=== PATIENT | male | born 1970 | race Caucasian/White ===

== ENCOUNTER 2017-01-22 01:27 | Inpatient (IN) | payer BC ==
[~2017-01-22] VITALS: Ht 172.7 cm; Wt 105.3 kg
[2017-01-22] MEDS ORDERED: NS 1,000 ML IV ONE (02:00)
[2017-01-22 02:19] LABS: VENOUS BASE EXCESS -23.1 (-2.0-2.0); VENOUS O2 SATURATION 87.3 % (60.0-80.0); VENOUS PARTIAL PRESSURE CO2 20.3 mmHg (38.0-50.0); VENOUS STANDARD HCO3 8.8 MEQ/L; VENOUS TOTAL CO2 6.2 MEQ/L (24.0-28.0)
[2017-01-22 02:27] LABS: BASO # 0.1 K/mm3 (0.0-0.2); BASO % 0.5 % (0.0-1.0); EOS # 0.1 K/mm3 (0.0-0.50); EOS % 0.4 % (0.0-3.0); LARGE UNSTAINED CELL # 0.1 K/mm3 (0.0-0.4); LARGE UNSTAINED CELL % 0.6 % (0.0-4.0); LYMPH # 2.3 K/mm3 (1.5-4.5); LYMPH % 10.3 % (24.0-44.0); MEAN CORPUSCULAR HEMOGLOBIN 35.6 pg (27.0-33.0); MEAN CORPUSCULAR HGB CONC 32.7 g/dl (32.0-36.5); MONO # 0.8 K/mm3 (0.0-0.8); MONO % 3.4 % (0.0-5.0); NEUTROPHILS # 18.6 K/mm3 (1.8-7.7); NEUTROPHILS % 84.8 % (36.0-66.0); PLATELET COUNT, AUTOMATED 332 k/mm3 (150-450); RED CELL DISTRIBUTION WIDTH 14.2 % (11.5-14.5); WHITE BLOOD COUNT 21.9 K/mm3 (4.0-10.0)
[2017-01-22] MEDS ORDERED: CHLO4TAB2 PO (02:28)
[2017-01-22 02:32] LABS: OSMOLALITY SERUM 326 MOSM/KG (275-295)
[2017-01-22 02:51] LABS: ALBUMIN 3.3 GM/DL (3.2-5.2); ANION GAP 24 MEQ/L (8-16); CARBON DIOXIDE LEVEL 9 MEQ/L (21-32); CHLORIDE LEVEL 93 MEQ/L (98-107); CREATININE FOR GFR 1.63 MG/DL (0.70-1.30); GLOMERULAR FILTRATION RATE 48.3 (>60); SODIUM LEVEL 126 MEQ/L (136-145)
[2017-01-22 03:20] LABS: ALKALINE PHOSPHATASE 131 U/L (45-117); BLOOD UREA NITROGEN 15 MG/DL (7-18); CALCIUM LEVEL 6.7 MG/DL (8.5-10.1); GLUCOSE, FASTING 509 MG/DL (70-105)
[2017-01-22 03:21] LABS: ALBUMIN/GLOBULIN RATIO 0.67 (1.00-1.93); BILIRUBIN,DIRECT < 0.1 MG/DL (0.0-0.2); BILIRUBIN,TOTAL 1.4 MG/DL (0.2-1.0); TOTAL PROTEIN 8.2 GM/DL (6.4-8.2)
[2017-01-22] MEDS ORDERED: INSULIN HUMAN REGULAR 100 UNITS in NS 99 ML IV SCH ×2 (03:29→03:47)
[2017-01-22 03:30] LABS: POTASSIUM SERUM 5.2 MEQ/L (3.5-5.1)
[2017-01-22] MEDS ORDERED: INSULIN IV RATE CHANGE DOCUMENTATION ML/HR XX SCH ×2 (03:30→04:00)
[2017-01-22 03:41] LABS: ALT/SGPT 76 U/L (12-78)
[2017-01-22 03:44] LABS: AST/SGOT 54 U/L (15-37)
[2017-01-22] MEDS: NS 1,000 ML IV SCH ×6 (03:54→21:54)
[2017-01-22] MEDS ORDERED: ONDANSETRON 4 MG TAB (S0181) PO PRN (04:00)
[2017-01-22] MEDS: INSULIN HUMAN REGULAR 100 UNITS in NS 99 ML IV SCH (04:40)
[2017-01-22 05:04] LABS: ANION GAP 21 MEQ/L (8-16); CARBON DIOXIDE LEVEL 9 MEQ/L (21-32); CHLORIDE LEVEL 97 MEQ/L (98-107); CREATININE FOR GFR 1.74 MG/DL (0.70-1.30); GLOMERULAR FILTRATION RATE 44.8 (>60); SODIUM LEVEL 127 MEQ/L (136-145)
[2017-01-22 05:09] LABS: BLOOD UREA NITROGEN 16 MG/DL (7-18); CALCIUM LEVEL 6.6 MG/DL (8.5-10.1); GLUCOSE, FASTING 492 MG/DL (70-105); POTASSIUM SERUM 5.5 MEQ/L (3.5-5.1)
--- NOTE | 2017-01-22 05:15 | HPE ---
DATE OF ADMISSION: 01/22/2017 PRIMARY CARE PROVIDER: None. REASON FOR ADMISSION: Nausea and diaphoresis. HISTORY OF PRESENT ILLNESS The patient is a 46-year-old male with no known past medical history. He does not see any providers, only goes to urgent care clinic when he is sick. 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 His coworkers noted that he was diaphoretic and tachypneic and they recommended that he go down to the emergency room. Upon arrival to the emergency room, the patient's blood sugar was found to be 419. He has no known history of diabetes but he does have family history of diabetes. Upon my exam, the patient was only complaining of thirst and headache and dizziness and slight nausea. In the emergency room, the patient was given one bolus of normal saline and he was started on insulin drip. Blood work confirmed a diagnosis of his diabetic ketoacidosis. The patient had an anion gap of 24 on his labs, beta-hydroxybutyrate of greater than 46, fasting glucose of 509. Hospitalist was called for the admission. REVIEW OF SYSTEMS: 12-point review of systems was obtained, all of which was negative except for those mentioned above. PAST MEDICAL HISTORY: None. PAST SURGICAL HISTORY: None. ALLERGIES TO MEDICATIONS: None. PRESCRIBED MEDICATIONS: None. SOCIAL HISTORY: The patient denies any tobacco use. States he drinks occasionally. According to records, the patient has history of alcohol rehabilitation. He states he lives alone. FAMILY HISTORY: Positive family history of diabetes sisters and his mother. PHYSICAL FINDINGS: VITAL SIGNS: Temperature 98.5, pulse 132, respiratory rate 20, blood pressure is 146/90, pulse oximetry 98% on room air. HEENT: Pupils equal, round, reactive to light and accommodation. NECK: Supple. No jugular venous distention (JVD). LUNGS: Clear to auscultation bilaterally. CARDIAC: Tachycardiac. No obvious murmurs appreciated. ABDOMEN: Soft, nontender. EXTREMITIES: No clubbing, cyanosis or edema. NEUROLOGIC: Cranial nerves II-XII grossly intact. No focal deficits. LABORATORY FINDINGS: WBC 21.90, hemoglobin 16.4, hematocrit 40.1, platelet count 332. Sodium 126, potassium 5.2, BUN 15, creatinine 1.63, fasting glucose 509, hemoglobin A1c 12.1. ASSESSMENT AND PLAN: 1. Diabetic ketoacidosis. Continue insulin drip. Continue intravenous (IV) fluids. The patient received one bolus of normal saline. We will continue normal saline at a rate of 250 mL an hour. We will continue check basic metabolic panel (BMP) every four hours. We will admit the patient to intensive care unit (ICU). 2. Hyperkalemia secondary to diabetic ketoacidosis. 3. Hyponatremia secondary to ketoacidosis. 4. Deep venous thrombosis (DVT) prophylaxis. Lovenox while in bed.
[2017-01-22 05:44] VITALS: BP 142/94
[2017-01-22] MEDS: INSULIN IV RATE CHANGE DOCUMENTATION ML/HR XX SCH ×3 (05:46→09:03)
[2017-01-22 08:00] VITALS: BP 139/93
[2017-01-22] MEDS: ENOXAPARIN 30 MG/0.3 ML SYR (J1650) SC SCH (08:24)
[2017-01-22 09:41] LABS: CREATININE FOR GFR 1.48 MG/DL (0.70-1.30); POTASSIUM SERUM 4.7 MEQ/L (3.5-5.1)
[2017-01-22 10:23] LABS: CALCIUM LEVEL 8.2 MG/DL (8.5-10.1)
[2017-01-22 12:00] VITALS: BP 140/85
[2017-01-22 13:02] LABS: ANION GAP 17 MEQ/L (8-16); CARBON DIOXIDE LEVEL 11 MEQ/L (21-32); CHLORIDE LEVEL 103 MEQ/L (98-107); CREATININE FOR GFR 1.53 MG/DL (0.70-1.30); GLUCOSE, FASTING 368 MG/DL (70-105); SODIUM LEVEL 131 MEQ/L (136-145)
[2017-01-22 13:53] LABS: BLOOD UREA NITROGEN 16 MG/DL (7-18); CALCIUM LEVEL 8.1 MG/DL (8.5-10.1)
[2017-01-22 13:55] LABS: POTASSIUM SERUM 5.2 MEQ/L (3.5-5.1)
--- NOTE | 2017-01-22 14:41 | ECGEPIP ---
Stationary ECG Study [facility] - ED Test Date: 2017-01-22 Pat Name: MICHAELA MORALES Department: Room: [place] [address] Gender: M Tooling Engineering Tech: triny : 1970 Requested By: RASHEL Winter Order Number: [id number] Reading MD: Shashi Cortes Measurements Intervals [place] Rate: 121 P: 54 [place]: 136 QRS: 5 QRSD: 80 T: 33 QT: 306 QTc: 436 Interpretive Statements SINUS TACHYCARDIA POSSIBLE LAE POSSIBLE INFERIOR MYOCARDIAL INFARCTION, OF INDETERMINATE AGE NO PRIORS Electronically Signed On 01-22-2017 14:41:29 EDT by Shashi Cortes
[2017-01-22 16:00] VITALS: BP 135/78
[2017-01-22 17:10] LABS: CARBON DIOXIDE LEVEL 12 MEQ/L (21-32); CHLORIDE LEVEL 105 MEQ/L (98-107); CREATININE FOR GFR 1.48 MG/DL (0.70-1.30); GLUCOSE, FASTING 331 MG/DL (70-105); POTASSIUM SERUM 4.4 MEQ/L (3.5-5.1); SODIUM LEVEL 134 MEQ/L (136-145)
[2017-01-22 17:23] LABS: BLOOD UREA NITROGEN 16 MG/DL (7-18)
[2017-01-22 17:45] LABS: CALCIUM LEVEL 7.3 MG/DL (8.5-10.1)
[2017-01-22 19:47] VITALS: BP 120/74
[2017-01-22 20:44] LABS: ANION GAP 17 MEQ/L (8-16)
[2017-01-22 21:29] LABS: ANION GAP 12 MEQ/L (8-16); BLOOD UREA NITROGEN 17 MG/DL (7-18); CALCIUM LEVEL 8.1 MG/DL (8.5-10.1); CARBON DIOXIDE LEVEL 14 MEQ/L (21-32); CHLORIDE LEVEL 109 MEQ/L (98-107); CREATININE FOR GFR 1.62 MG/DL (0.70-1.30); GLOMERULAR FILTRATION RATE 48.7 (>60); GLUCOSE, FASTING 254 MG/DL (70-105); SODIUM LEVEL 135 MEQ/L (136-145)
[2017-01-22 21:32] LABS: POTASSIUM SERUM 5.4 MEQ/L (3.5-5.1)
[2017-01-23 00:03] VITALS: BP 117/73
[2017-01-23 01:51] LABS: CALCIUM LEVEL 7.3 MG/DL (8.5-10.1); CREATININE FOR GFR 1.46 MG/DL (0.70-1.30); GLOMERULAR FILTRATION RATE 54.9 (>60)
[2017-01-23] MEDS: NS 1,000 ML IV SCH ×3 (01:56→12:21)
[2017-01-23 02:13] LABS: POTASSIUM SERUM 5.2 MEQ/L (3.5-5.1)
[2017-01-23 04:00] VITALS: BP 109/66
[2017-01-23 05:17] LABS: MEAN CORPUSCULAR HEMOGLOBIN 33.1 pg (27.0-33.0); MEAN CORPUSCULAR HGB CONC 34.1 g/dl (32.0-36.5); MEAN CORPUSCULAR VOLUME 97.1 fl (80.0-96.0); RED CELL DISTRIBUTION WIDTH 14.5 % (11.5-14.5); WHITE BLOOD COUNT 10.8 K/mm3 (4.0-10.0)
[2017-01-23] MEDS: INSULIN HUMAN REGULAR 100 UNITS in NS 99 ML IV SCH (05:19)
[2017-01-23 05:48] LABS: ANION GAP 17 MEQ/L (8-16); BLOOD UREA NITROGEN 15 MG/DL (7-18); CALCIUM LEVEL 6.9 MG/DL (8.5-10.1); CARBON DIOXIDE LEVEL 12 MEQ/L (21-32); CHLORIDE LEVEL 107 MEQ/L (98-107); CHOLESTEROL LEVEL 335 MG/DL (<200); GLOMERULAR FILTRATION RATE 53.2 (>60); GLUCOSE, FASTING 250 MG/DL (70-105); MAGNESIUM LEVEL 2.1 MG/DL (1.8-2.4); POTASSIUM SERUM 4.3 MEQ/L (3.5-5.1); SODIUM LEVEL 136 MEQ/L (136-145); TRIGLYCERIDES LEVEL 2157 MG/DL (<150)
[2017-01-23] MEDS ORDERED: CALCIUM GLUCONATE 1,000 MG in D5W MINI-BAG PLUS 100 ML IV ONE (07:30)
[2017-01-23 08:00] VITALS: BP 110/63
[2017-01-23 08:57] LABS: CALCIUM LEVEL 6.9 MG/DL (8.5-10.1); CREATININE FOR GFR 1.54 MG/DL (0.70-1.30); GLUCOSE, FASTING 235 MG/DL (70-105); POTASSIUM SERUM 3.8 MEQ/L (3.5-5.1); SODIUM LEVEL 137 MEQ/L (136-145)
[2017-01-23 09:33] LABS: BLOOD UREA NITROGEN 15 MG/DL (7-18)
[2017-01-23] MEDS: ENOXAPARIN 30 MG/0.3 ML SYR (J1650) SC SCH (09:49)
[2017-01-23 10:46] LABS: CALCIUM LEVEL 7.8 MG/DL (8.5-10.1); CREATININE FOR GFR 1.48 MG/DL (0.70-1.30)
[2017-01-23 10:52] LABS: ANION GAP 15 MEQ/L (8-16); CARBON DIOXIDE LEVEL 14 MEQ/L (21-32); CHLORIDE LEVEL 108 MEQ/L (98-107)
[2017-01-23] MEDS ORDERED: ADVOMIS4 XX (10:52)
[2017-01-23] MEDS ORDERED: ADVO31MI2 XX (10:52)
[2017-01-23] MEDS ORDERED: INSUDET SC (10:52)
[2017-01-23] MEDS ORDERED: ADVOKIT XX (10:52)
--- NOTE | 2017-01-23 11:08 | IPNPDOC ---
Subjective Date Seen The patient was seen on 01/23/17. Subjective Chief Complaint/HPI The patient is a 46-year-old male admitted with a reason for visit of DKA. General: Denies: Chills, Night Sweats Constitutional: Denies: Chills, Fever Eyes: Denies: Pain, Vision change ENT: Denies: Head Aches, Ear Pain Skin: Denies: Rash, Lesions Pulmonary: Denies: Dyspnea, Cough Cardiovascular: Denies: Chest Pain, Palpitations Gastrointestinal: Denies: Nausea, Vomiting Genitourinary: Denies: Dysuria, Frequency Hematologic: Denies: Bruising, Bleeding Excessively Objective Physical Examination General Exam: Positive: Alert, Cooperative, No Acute Distress ENT Exam: Positive: Atraumatic, Mucous membr. moist/pink Neck Exam: Negative: JVD Chest Exam: Positive: Clear to auscultation, Normal air movement Heart Exam: Positive: Rate Normal, Normal S1, Normal S2 Telemetry: Positive: Sinus Abdomen Exam: Positive: Soft, Negative: Tenderness Extremity Exam: Negative: Tenderness, Swelling Psych Exam: Positive: Oriented x 3 Assessment /Plan Plan/VTE VTE Prophylaxis Ordered?: Yes Plan Diabetic ketoacidosis 2/2 Non-Adherence to Insulin Therapy, Pancreatitis Patient diagnosed with Diabetes Mellitus in March 2016 according to lab work and had not seen a PCP, or taken any medications Hemoglobin A1c noted to be 12.1% Continue IV Insulin, IVF Hydration and DKA Protocol BMP every 2 hours, fingersticks every hour Patient's anion gap improving over the last 24 hours We will continue to monitor the patient's progress Pancreatitis Patient noted to have an elevated lipase level of 1741 with complaints of abdominal pain on admission At this time patient states that his abdominal pain has resolved Pancreatitis may be secondary to the patient's hypertriglyceridemia We will order a liver ultrasound to rule out gallstones as another possible etiology Dyslipidemia Lipid panel noted with elevated Total Cholesterol, Triglyceride levels The patient will need to be started on a statin, fenofibrate Deep venous thrombosis (DVT) prophylaxis Lovenox VS, I&O, 24H, Fishbone Vital Signs/I&O Vital Signs Date Time Temp Pulse Resp B/P (MAP) Pulse Ox O2 Delivery O2 Flow Rate FiO2 01/23/17 08:00 97.0 93 97 110/63 (79) 18 Room Air I&O- Last 24 Hours up to 6 AM 01/23/17 05:59 Intake Total 6295 ml Output Total 3725 ml Balance 2570 ml Laboratory Data 24H LABS Laboratory Tests 2 01/22/17 11:18: Bedside Glucose (Misc Panel) 277H 01/22/17 12:06: Bedside Glucose (Misc Panel) 291H 01/22/17 12:24: Anion Gap 17H, Glomerular Filtration Rate 52.0L, Blood Urea Nitrogen 16, Creatinine 1.53H, Sodium Level 131L, Potassium Level 5.2H, Chloride Level 103, Carbon Dioxide Level 11L, Calcium Level 8.1L, Total Creatine Kinase 133, Creatine Kinase MB 1.0, Creatine Kinase MB Relative Index 0.75, Troponin I < 0.02 01/22/17 13:00: Bedside Glucose (Misc Panel) 284H 01/22/17 13:54: Bedside Glucose (Misc Panel) 297H 01/22/17 14:53: Bedside Glucose (Misc Panel) 258H 01/22/17 16:00: Bedside Glucose (Misc Panel) 257H 01/22/17 16:27: Anion Gap 17H, Blood Urea Nitrogen 16, Creatinine 1.48H, Sodium Level 134L, Potassium Level 4.4, Chloride Level 105, Carbon Dioxide Level 12L, Calcium Level 7.3L 01/22/17 17:08: Bedside Glucose (Misc Panel) 243H 01/22/17 18:10: Bedside Glucose (Misc Panel) 249H 01/22/17 18:48: Bedside Glucose (Misc Panel) 233H 01/22/17 19:45: Bedside Glucose (Misc Panel) 256H 01/22/17 20:29: Anion Gap 12, Glomerular Filtration Rate 48.7L, Blood Urea Nitrogen 17, Creatinine 1.62H, Sodium Level 135L, Potassium Level 5.4H, Chloride Level 109H, Carbon Dioxide Level 14L, Calcium Level 8.1L, Total Creatine Kinase 198, Creatine Kinase MB 1.0, Creatine Kinase MB Relative Index 0.50, Troponin I < 0.02 01/22/17 20:45: Bedside Glucose (Misc Panel) 255H 01/22/17 21:49: Bedside Glucose (Misc Panel) 263H 01/22/17 22:46: Bedside Glucose (Misc Panel) 233H 01/22/17 23:50: Bedside Glucose (Misc Panel) 244H 01/23/17 00:55: Bedside Glucose (Misc Panel) 210H 01/23/17 01:25: Anion Gap 11, Glomerular Filtration Rate 54.9L, Blood Urea Nitrogen 14, Creatinine 1.46H, Sodium Level 134L, Potassium Level 5.2H, Chloride Level 108H, Carbon Dioxide Level 15L, Calcium Level 7.3L 01/23/17 01:53: Bedside Glucose (Misc Panel) 226H 01/23/17 02:53: Bedside Glucose (Misc Panel) 236H 01/23/17 03:55: Bedside Glucose (Misc Panel) 223H 01/23/17 04:54: Anion Gap 17H, Glomerular Filtration Rate 53.2L, Calcium Level 6.9L, Magnesium Level 2.1, Triglycerides Level 2157H, LDL Cholesterol , Total Cholesterol 335H, Non-HDL Cholesterol (LDL + VLDL) 309, Total HDL Cholesterol 26L, Cholesterol/ HDL Ratio 12.884H, Lipase 1052H 01/23/17 05:06: Bedside Glucose (Misc Panel) 205H 01/23/17 05:57: Bedside Glucose (Misc Panel) 217H 01/23/17 06:53: Bedside Glucose (Misc Panel) 201H 01/23/17 08:15: Bedside Glucose (Misc Panel) 184H, Anion Gap 15, Blood Urea Nitrogen 15, Creatinine 1.54H, Sodium Level 137, Potassium Level 3.8, Chloride Level 108H, Carbon Dioxide Level 14L, Calcium Level 6.9L 01/23/17 09:41: Bedside Glucose (Misc Panel) 209H 01/23/17 10:05: Anion Gap 17H, Glomerular Filtration Rate 54.0L, Blood Urea Nitrogen 15, Creatinine 1.48H, Sodium Level 138, Potassium Level 4.0, Chloride Level 109H, Carbon Dioxide Level 12L, Calcium Level 7.8L 01/23/17 10:31: Bedside Glucose (Misc Panel) 205H CBC/BMP Laboratory Tests 01/22/17 12:24 Calcium Level 8.1 L, Total Creatine Kinase 133 01/22/17 16:27 Calcium Level 7.3 L 01/22/17 20:29 Calcium Level 8.1 L, Total Creatine Kinase 198 01/23/17 01:25 Calcium Level 7.3 L 01/23/17 04:54 Red Blood Count 4.01 L, Mean Corpuscular Volume 97.1 H, Mean Corpuscular Hemoglobin 33.1 H, Mean Corpuscular Hemoglobin Concent 34.1, Red Cell Distribution Width 14.5 01/23/17 08:15 Calcium Level 6.9 L 01/23/17 10:05 Calcium Level 7.8 L Microbiology Microbiology 01/22/17 Blood Culture - Preliminary, Resulted No growth after 24 hours . All specim... FLORA ÁLVAREZ MD January 23, 2017 11:07
[2017-01-23 12:00] VITALS: BP 112/62
[2017-01-23 13:16] LABS: ANION GAP 18 MEQ/L (8-16); BLOOD UREA NITROGEN 14 MG/DL (7-18); CALCIUM LEVEL 7.8 MG/DL (8.5-10.1); CARBON DIOXIDE LEVEL 11 MEQ/L (21-32); CHLORIDE LEVEL 112 MEQ/L (98-107); CREATININE FOR GFR 1.26 MG/DL (0.70-1.30); GLOMERULAR FILTRATION RATE > 60.0 (>60); GLUCOSE, FASTING 218 MG/DL (70-105); POTASSIUM SERUM 3.9 MEQ/L (3.5-5.1); SODIUM LEVEL 141 MEQ/L (136-145)
[2017-01-23] MEDS ORDERED: NS 0.45% 1,000 ML IV SCH (13:30)
[2017-01-23] MEDS ORDERED: POTASSIUM CHLORIDE 10 MEQ SR TABLET PO ONE ×3 (13:30→23:00)
[2017-01-23] MEDS: D5W/0.45% SODIUM CHLORIDE 1,000 ML IV SCH ×4 (14:05→22:54)
[2017-01-23 14:52] LABS: ANION GAP 16 MEQ/L (8-16); BLOOD UREA NITROGEN 14 MG/DL (7-18); CALCIUM LEVEL 7.8 MG/DL (8.5-10.1); CARBON DIOXIDE LEVEL 14 MEQ/L (21-32); CHLORIDE LEVEL 111 MEQ/L (98-107); GLOMERULAR FILTRATION RATE > 60.0 (>60); GLUCOSE, FASTING 208 MG/DL (70-105); POTASSIUM SERUM 3.4 MEQ/L (3.5-5.1); SODIUM LEVEL 141 MEQ/L (136-145)
[2017-01-23 16:00] VITALS: BP 113/63
[2017-01-23 16:55] LABS: CALCIUM LEVEL 7.8 MG/DL (8.5-10.1); CREATININE FOR GFR 1.4 MG/DL (0.70-1.30); GLOMERULAR FILTRATION RATE 57.6 (>60); POTASSIUM SERUM 3.8 MEQ/L (3.5-5.1)
--- NOTE | 2017-01-23 18:16 | REP ---
HEPATIC ULTRASOUND: 01/23/2017: Clinical history: Pancreatitis. Findings: There are no prior studies. The entire examination is somewhat limited due to abundant overlying bowel gas and body habitus considerations. There is some hepatomegaly with diffuse hyperechogenic liver consistent with fatty infiltration. There is a zone of focal fat sparing adjacent to the gallbladder fossa measuring 2.8 x 1.5 x 1.3 cm. No intrahepatic biliary dilatation nor adjacent ascites. Gallbladder is at least 5.4 cm long and shows no stone, sludge or pericholecystic fluid. Gallbladder wall thickness is 2.5 mm, normal. Common duct 4.4 mm without filling defect. Pancreas is limited evaluation due to the gas shadowing and body habitus. The pancreatic detail evaluation is poor and tail of the body and head seen only in part and grossly intact. The right kidney is 12.1 x 6.5 x 6.1 cm. No hydronephrosis or stones seen. Impression: 1. Some degree of hepatomegaly with diffuse fatty infiltration with a zone of focal fat sparing adjacent to the gallbladder fossa without biliary dilatation, discrete mass, cyst or perihepatic ascites. 2. Common duct 4.4 mm without filling defect in the gallbladder up to 5.4 cm long with normal wall thickness and no stone, sludge or pericholecystic fluid. 3. The pancreas has limited evaluation due to factors described above. The right kidney shows no hydronephrosis or stone. Signed by Migel Carreon MD 01/23/2017 07:51 P
[2017-01-23 18:58] LABS: CALCIUM LEVEL 7.6 MG/DL (8.5-10.1); CREATININE FOR GFR 1.37 MG/DL (0.70-1.30); POTASSIUM SERUM 3.4 MEQ/L (3.5-5.1)
[2017-01-23 20:00] VITALS: BP 116/71
[2017-01-23 20:25] LABS: ANION GAP 15 MEQ/L (8-16); BLOOD UREA NITROGEN 14 MG/DL (7-18); CALCIUM LEVEL 6.9 MG/DL (8.5-10.1); CARBON DIOXIDE LEVEL 15 MEQ/L (21-32); CHLORIDE LEVEL 108 MEQ/L (98-107); CREATININE FOR GFR 1.27 MG/DL (0.70-1.30); GLOMERULAR FILTRATION RATE > 60.0 (>60); GLUCOSE, FASTING 289 MG/DL (70-105); POTASSIUM SERUM 3.5 MEQ/L (3.5-5.1); SODIUM LEVEL 138 MEQ/L (136-145)
[2017-01-23 22:27] LABS: CALCIUM LEVEL 7.1 MG/DL (8.5-10.1); CREATININE FOR GFR 1.38 MG/DL (0.70-1.30); GLOMERULAR FILTRATION RATE 58.5 (>60); POTASSIUM SERUM 3.3 MEQ/L (3.5-5.1)
[2017-01-24] VITALS (7 sets, daily range): BP systolic 115–133; BP diastolic 67–84
[2017-01-24 00:42] LABS: ANION GAP 12 MEQ/L (8-16); BLOOD UREA NITROGEN 11 MG/DL (7-18); CALCIUM LEVEL 7.7 MG/DL (8.5-10.1); CARBON DIOXIDE LEVEL 19 MEQ/L (21-32); CHLORIDE LEVEL 110 MEQ/L (98-107); CREATININE FOR GFR 1.26 MG/DL (0.70-1.30); GLOMERULAR FILTRATION RATE > 60.0 (>60); GLUCOSE, FASTING 265 MG/DL (70-105); POTASSIUM SERUM 3.2 MEQ/L (3.5-5.1); SODIUM LEVEL 141 MEQ/L (136-145)
[2017-01-24 02:11] LABS: CALCIUM LEVEL 7.4 MG/DL (8.5-10.1); CREATININE FOR GFR 1.39 MG/DL (0.70-1.30); GLOMERULAR FILTRATION RATE 58.1 (>60); POTASSIUM SERUM 3.2 MEQ/L (3.5-5.1)
[2017-01-24 04:54] LABS: MEAN CORPUSCULAR HEMOGLOBIN 32.3 pg (27.0-33.0); MEAN CORPUSCULAR HGB CONC 35.1 g/dl (32.0-36.5); RED CELL DISTRIBUTION WIDTH 14.9 % (11.5-14.5); WHITE BLOOD COUNT 7.8 K/mm3 (4.0-10.0)
[2017-01-24 05:00] LABS: ANION GAP 13 MEQ/L (8-16); BLOOD UREA NITROGEN 10 MG/DL (7-18); CALCIUM LEVEL 7.5 MG/DL (8.5-10.1); CARBON DIOXIDE LEVEL 16 MEQ/L (21-32); CHLORIDE LEVEL 109 MEQ/L (98-107); CREATININE FOR GFR 1.22 MG/DL (0.70-1.30); GLOMERULAR FILTRATION RATE > 60.0 (>60); GLUCOSE, FASTING 251 MG/DL (70-105); POTASSIUM SERUM 3.2 MEQ/L (3.5-5.1); SODIUM LEVEL 138 MEQ/L (136-145)
[2017-01-24 05:01] LABS: MEAN CORPUSCULAR VOLUME 92.1 fl (80.0-96.0)
[2017-01-24] MEDS: KCL 10MEQ IN 100ML SWI (KRUN) 10 MEQ in APPROPRIATE DILUENT 1 EA IV SCH ×8 (06:12→10:37)
[2017-01-24] MEDS ORDERED: GLUCOSE 4 GM CHEW TABLET PO PRN (07:30)
[2017-01-24] MEDS: HumaLOG INSULIN (NovoLOG) PER UNIT SC SCH ×3 (07:30→17:27)
[2017-01-24] MEDS ORDERED: GLUCAGON FOR INJ 1 MG VIAL (J1610) SC PRN (07:30)
[2017-01-24] MEDS ORDERED: DEXTROSE 50% 50 ML SYRINGE IV PRN (07:30)
[2017-01-24] MEDS: LEVEMIR (INSULIN DETEMIR) 1 UNITS/0.01ML SC SCH (08:00)
[2017-01-24] MEDS: ENOXAPARIN 30 MG/0.3 ML SYR (J1650) SC SCH (09:32)
--- NOTE | 2017-01-24 13:14 | IPNPDOC ---
Subjective Date Seen The patient was seen on 01/24/17. Subjective Chief Complaint/HPI The patient is a 46-year-old male admitted with a reason for visit of DKA. General: Denies: Chills, Night Sweats Constitutional: Denies: Chills, Fever Eyes: Denies: Pain, Vision change ENT: Denies: Head Aches, Ear Pain Skin: Denies: Rash, Lesions Pulmonary: Denies: Dyspnea, Cough Cardiovascular: Denies: Chest Pain, Palpitations Gastrointestinal: Denies: Nausea, Vomiting Genitourinary: Denies: Dysuria, Frequency Hematologic: Denies: Bruising, Bleeding Excessively Objective Physical Examination General Exam: Positive: Alert, Cooperative, No Acute Distress ENT Exam: Positive: Atraumatic, Mucous membr. moist/pink Neck Exam: Negative: JVD Chest Exam: Positive: Clear to auscultation, Normal air movement Heart Exam: Positive: Rate Normal, Normal S1, Normal S2 Telemetry: Positive: Sinus Abdomen Exam: Positive: Soft, Negative: Tenderness Extremity Exam: Negative: Tenderness, Swelling Psych Exam: Positive: Oriented x 3 Assessment /Plan Plan/VTE VTE Prophylaxis Ordered?: Yes Plan Diabetic ketoacidosis 2/2 Non-Adherence to Insulin Therapy, Pancreatitis Patient diagnosed with Diabetes Mellitus in March 2016 according to lab work and had not seen a PCP, or taken any medications Hemoglobin A1c noted to be 12.1% Patient's anion gap closed over night Transitioned to SC Insulin, PO Diet We will continue to monitor the patient's progress Pancreatitis Patient noted to have an elevated lipase level of 1741 with complaints of abdominal pain on admission At this time patient states that his abdominal pain has resolved and he is tolerating a PO Diet Pancreatitis may be secondary to the patient's hypertriglyceridemia Liver U/S with no acute findings for cholecystitis, gallstone pancreatitis Hypertriglyceridemia Lipid panel noted The patient will be started on fenofibrate I have extensively discussed the need for dietary discretion, exercise, and overall lifestyle modifications that the patient needs to implement in order to better control his medical comorbidities. I have also ordered a dietary consult. Deep venous thrombosis (DVT) prophylaxis Lovenox VS, I&O, 24H, Fishbone Vital Signs/I&O Vital Signs Date Time Temp Pulse Resp B/P (MAP) Pulse Ox O2 Delivery O2 Flow Rate FiO2 01/24/17 12:00 96.6 92 22 121/74 (90) 98 Room Air I&O- Last 24 Hours up to 6 AM 01/24/17 05:59 Intake Total 6505 ml Output Total 3800 ml Balance 2705 ml Laboratory Data 24H LABS Laboratory Tests 2 01/23/17 14:00: Bedside Glucose (Misc Panel) 180H 01/23/17 14:01: Anion Gap 16, Glomerular Filtration Rate > 60.0, Blood Urea Nitrogen 14, Creatinine 1.30, Sodium Level 141, Potassium Level 3.4L, Chloride Level 111H, Carbon Dioxide Level 14L, Calcium Level 7.8L 01/23/17 15:27: Bedside Glucose (Misc Panel) 234H 01/23/17 16:03: Bedside Glucose (Misc Panel) 254H, Anion Gap 16, Glomerular Filtration Rate 57.6L, Blood Urea Nitrogen 15, Creatinine 1.40H, Sodium Level 139, Potassium Level 3.8, Chloride Level 109H, Carbon Dioxide Level 14L, Calcium Level 7.8L 01/23/17 17:05: Bedside Glucose (Misc Panel) 264H 01/23/17 17:57: Bedside Glucose (Misc Panel) 244H 01/23/17 17:58: Anion Gap 15, Glomerular Filtration Rate 59.0L, Blood Urea Nitrogen 14, Creatinine 1.37H, Sodium Level 138, Potassium Level 3.4L, Chloride Level 109H, Carbon Dioxide Level 14L, Calcium Level 7.6L 01/23/17 18:48: Bedside Glucose (Misc Panel) 260H 01/23/17 19:52: Anion Gap 15, Glomerular Filtration Rate > 60.0, Blood Urea Nitrogen 14, Creatinine 1.27, Sodium Level 138, Potassium Level 3.5, Chloride Level 108H, Carbon Dioxide Level 15L, Calcium Level 6.9L 01/23/17 19:55: Bedside Glucose (Misc Panel) 253H 01/23/17 20:50: Bedside Glucose (Misc Panel) 250H 01/23/17 21:52: Bedside Glucose (Misc Panel) 268H 01/23/17 22:02: Anion Gap 13, Glomerular Filtration Rate 58.5L, Blood Urea Nitrogen 12, Creatinine 1.38H, Sodium Level 138, Potassium Level 3.3L, Chloride Level 108H, Carbon Dioxide Level 17L, Calcium Level 7.1L 01/23/17 22:51: Bedside Glucose (Misc Panel) 280H 01/24/17 00:02: Bedside Glucose (Misc Panel) 247H 01/24/17 00:05: Anion Gap 12, Glomerular Filtration Rate > 60.0, Blood Urea Nitrogen 11, Creatinine 1.26, Sodium Level 141, Potassium Level 3.2L, Chloride Level 110H, Carbon Dioxide Level 19L, Calcium Level 7.7L 01/24/17 01:02: Bedside Glucose (Misc Panel) 284H 01/24/17 01:46: Anion Gap 12, Glomerular Filtration Rate 58.1L, Blood Urea Nitrogen 11, Creatinine 1.39H, Sodium Level 138, Potassium Level 3.2L, Chloride Level 107, Carbon Dioxide Level 19L, Calcium Level 7.4L 01/24/17 03:02: Bedside Glucose (Misc Panel) 259H 01/24/17 03:48: Bedside Glucose (Misc Panel) 235H 01/24/17 04:12: Anion Gap 13, Glomerular Filtration Rate > 60.0, Blood Urea Nitrogen 10, Creatinine 1.22, Sodium Level 138, Potassium Level 3.2L, Chloride Level 109H, Carbon Dioxide Level 16L, Calcium Level 7.5L, Magnesium Level 2.0, Lipase 472H 01/24/17 04:51: Bedside Glucose (Misc Panel) 232H 01/24/17 06:02: Bedside Glucose (Misc Panel) 238H 01/24/17 06:48: Bedside Glucose (Misc Panel) 216H 01/24/17 07:59: Bedside Glucose (Misc Panel) 216H 01/24/17 09:26: Bedside Glucose (Misc Panel) 255H 01/24/17 10:03: Bedside Glucose (Misc Panel) 287H 01/24/17 11:18: Bedside Glucose (Misc Panel) 266H CBC/BMP Laboratory Tests 01/23/17 14:01 Calcium Level 7.8 L 01/23/17 16:03 Calcium Level 7.8 L 01/23/17 17:58 Calcium Level 7.6 L 01/23/17 19:52 Calcium Level 6.9 L 01/23/17 22:02 Calcium Level 7.1 L 01/24/17 00:05 Calcium Level 7.7 L 01/24/17 01:46 Calcium Level 7.4 L 01/24/17 04:12 Calcium Level 7.5 L, Red Blood Count 3.82 L, Mean Corpuscular Volume 92.1 #, Mean Corpuscular Hemoglobin 32.3, Mean Corpuscular Hemoglobin Concent 35.1, Red Cell Distribution Width 14.9 H Microbiology Microbiology 01/22/17 Blood Culture - Preliminary, Resulted No Growth after 48 hours. All Specime... FLORA ÁLVAREZ MD January 24, 2017 13:14
[2017-01-24] MEDS: FENOFIBRATE 48 MG TAB (TRICOR) PO SCH (14:57)
[2017-01-24] MEDS ORDERED: POTASSIUM CHLORIDE 10 MEQ SR TABLET PO ONE (15:00)
[2017-01-24] MEDS ORDERED: HumaLOG INSULIN (NovoLOG) PER UNIT SC SCH (21:00)
[2017-01-25 06:00] VITALS: BP 134/86
[2017-01-25 06:02] LABS: MEAN CORPUSCULAR HEMOGLOBIN 32.7 pg (27.0-33.0); MEAN CORPUSCULAR HGB CONC 35.3 g/dl (32.0-36.5); MEAN CORPUSCULAR VOLUME 92.8 fl (80.0-96.0); RED CELL DISTRIBUTION WIDTH 14.4 % (11.5-14.5)
[2017-01-25 06:19] LABS: ANION GAP 13 MEQ/L (8-16); BLOOD UREA NITROGEN 11 MG/DL (7-18); CALCIUM LEVEL 8.1 MG/DL (8.5-10.1); CARBON DIOXIDE LEVEL 21 MEQ/L (21-32); CHLORIDE LEVEL 103 MEQ/L (98-107); CREATININE FOR GFR 1.06 MG/DL (0.70-1.30); GLOMERULAR FILTRATION RATE > 60.0 (>60); GLUCOSE, FASTING 263 MG/DL (70-105); MAGNESIUM LEVEL 1.9 MG/DL (1.8-2.4); POTASSIUM SERUM 3.5 MEQ/L (3.5-5.1); SODIUM LEVEL 137 MEQ/L (136-145)
[2017-01-25] MEDS ORDERED: FENO48TA2 PO (07:21)
[2017-01-25] MEDS ORDERED: INSUDET SC (07:21)
[2017-01-25] MEDS ORDERED: POTASSIUM CHLORIDE 10 MEQ SR TABLET PO ONE (07:30)
[2017-01-25] MEDS: FENOFIBRATE 48 MG TAB (TRICOR) PO SCH (08:37)
[2017-01-25] MEDS: ENOXAPARIN 30 MG/0.3 ML SYR (J1650) SC SCH (08:38)
[2017-01-25] MEDS: LEVEMIR (INSULIN DETEMIR) 1 UNITS/0.01ML SC SCH (08:39)
[2017-01-25] MEDS: HumaLOG INSULIN (NovoLOG) PER UNIT SC SCH (08:39)
--- NOTE | 2017-01-25 15:06 | DS.PDOC ---
Discharge Summary General Date of Admission January 22, 2017 at 03:54 Date of Discharge 01/25/17 Discharge Summary PROCEDURES PERFORMED DURING STAY: None. ADMITTING DIAGNOSES: 1. . Diabetic ketoacidosis 2. . Acute pancreatitis 3. . Hypertriglyceridemia DISCHARGE DIAGNOSES: 1. . Diabetic ketoacidosis 2. . Acute pancreatitis 3. . Hypertriglyceridemia COMPLICATIONS/CHIEF COMPLAINT: DKA. HISTORY OF PRESENT ILLNESS: . 46-year-old male with no known past medical history presented to the ER with a chief complaint of nausea, vomiting, and abdominal pain over the last 1 week. The patient states that he had multiple episodes of nonbloody emesis, and states that he has not been able to keep anything down. He does note that he has checked his blood sugars at home and was noted to have a blood sugar level over 500. Of note, the patient states that he has not seen a physician in multiple years and does not take any medications. In the ER, the patient was noted to be in diabetic ketoacidosis with underlying acute pancreatitis. The patient was admitted to the hospital service for further evaluation and management. During hospitalization, the patient was provided with IV insulin and IV fluids until his anion gap was closed and he was able to tolerate a by mouth diet. The patient was eventually transitioned to subcutaneous insulin 15 units twice a day. During his workup, the patient was noted to have an elevated triglyceride level. He has been started on fenofibrate for treatment of this. This was likely the exacerbating factor for his acute pancreatitis. The patient was given extensive counseling on dietary, exercise, and overall lifestyle modifications in an effort to treat his underlying diabetes and hypertriglyceridemia. We have set the patient up with a primary care doctor and a follow-up appointment after discharge. At this time, the patient states that he is feeling much better and is eager to go home. I advised the patient to keep a logbook of his blood sugar levels to take with him to his primary care physician's office for further titration of his medications. If his blood sugar levels were to remain elevated he has been advised to return to the ER for further evaluation and management. DISCHARGE MEDICATIONS: Please see below. ALLERGIES: Please see below. PHYSICAL EXAMINATION ON DISCHARGE: VITAL SIGNS: Please see below. General Exam: Positive: Alert, Cooperative, No Acute Distress ENT Exam: Positive: Atraumatic, Mucous membr. moist/pink Neck Exam: Negative: JVD Chest Exam: Positive: Clear to auscultation, Normal air movement Heart Exam: Positive: Rate Normal, Normal S1, Normal S2 Telemetry: Positive: Sinus Abdomen Exam: Positive: Soft, Negative: Tenderness Extremity Exam: Negative: Tenderness, Swelling Psych Exam: Positive: Oriented x 3 LABORATORY DATA: Please see below. IMAGING: HEPATIC ULTRASOUND: 01/23/2017: Clinical history: Pancreatitis. Findings: There are no prior studies. The entire examination is somewhat limited due to abundant overlying bowel gas and body habitus considerations. There is some hepatomegaly with diffuse hyperechogenic liver consistent with fatty infiltration. There is a zone of focal fat sparing adjacent to the gallbladder fossa measuring 2.8 x 1.5 x 1.3 cm. No intrahepatic biliary dilatation nor adjacent ascites. Gallbladder is at least 5.4 cm long and shows no stone, sludge or pericholecystic fluid. Gallbladder wall thickness is 2.5 mm , normal. Common duct 4.4 mm without filling defect. Pancreas is limited evaluation due to the gas shadowing and body habitus. The pancreatic detail evaluation is poor and tail of the body and head seen only in part and grossly intact. The right kidney is 12.1 x 6.5 x 6.1 cm. No hydronephrosis or stones seen. Impression: 1. Some degree of hepatomegaly with diffuse fatty infiltration with a zone of focal fat sparing adjacent to the gallbladder fossa without biliary dilatation, discrete mass, cyst or perihepatic ascites. 2. Common duct 4.4 mm without filling defect in the gallbladder up to 5.4 cm long with normal wall thickness and no stone, sludge or pericholecystic fluid. 3. The pancreas has limited evaluation due to factors described above. The right kidney shows no hydronephrosis or stone. PROGNOSIS: Stable ACTIVITY: As tolerated. DIET: . Carb consistent diet DISCHARGE PLAN: DISPOSITION: Home, Self-Care. DISCHARGE INSTRUCTIONS: 1. . Follow-up with primary care physician as scheduled within 2 weeks 2. . Keep a logbook of blood sugar levels DISCHARGE CONDITION: Stable. TIME SPENT ON DISCHARGE: Greater than 30 minutes. Vital Signs/I&Os Vital Signs Date Time Temp Pulse Resp B/P (MAP) Pulse Ox O2 Delivery O2 Flow Rate FiO2 01/25/17 06:00 97.5 96 18 134/86 (102) 97 Room Air I&O- Last 24 Hours up to 6 AM 01/25/17 06:00 Intake Total 2232 ml Output Total 4300 ml Balance -2068 ml Laboratory Data Labs 24H Laboratory Tests 2 01/24/17 17:00: Bedside Glucose (Misc Panel) 291H 01/24/17 20:25: Bedside Glucose (Misc Panel) 292H 01/25/17 05:28: Anion Gap 13, Glomerular Filtration Rate > 60.0, Blood Urea Nitrogen 11, Creatinine 1.06, Sodium Level 137, Potassium Level 3.5, Chloride Level 103, Carbon Dioxide Level 21, Calcium Level 8.1L, Magnesium Level 1.9, Lipase 520H CBC/BMP Laboratory Tests 01/24/17 16:35 01/25/17 05:28 Red Blood Count 4.06 L, Mean Corpuscular Volume 92.8, Mean Corpuscular Hemoglobin 32.7, Mean Corpuscular Hemoglobin Concent 35.3, Red Cell Distribution Width 14.4, Calcium Level 8.1 L FSBS Laboratory Tests Test 01/24/17 17:00 01/24/17 20:25 Range/Units Bedside Glucose (Misc Panel) 291 292 70-105 MG/DL Microbiology Microbiology 01/22/17 Blood Culture - Preliminary, Resulted No Growth after 72 hours. All specime... 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
== END 2017-01-25 10:18 | disposition home or self-care (01) | DRG 420 ==
LOC: M ED 02:17 → M ED INP 03:54 → M ICU 05:31 → M MSPAV 01-24 17:03
PROVIDERS: ADMIT Internal Medicine; ATTEND Internal Medicine
DX: E13.10 Other specified diabetes mellitus with ketoacidosis without coma (principal); K85.90 Acute pancreatitis without necrosis or infection, unspecified; E87.5 Hyperkalemia; E78.5 Hyperlipidemia, unspecified; E87.1 Hypo-osmolality and hyponatremia; E78.1 Pure hyperglyceridemia; Z83.3 Family history of diabetes mellitus; Z91.14 Patient's other noncompliance with medication regimen; Z79.899 Other long term (current) drug therapy

== ENCOUNTER → 2018-09-16 | Outpatient (CLI) | payer BC ==
[~2018-09-16] MED LIST: ADVO31MI2 XX; ADVOKIT XX; ADVOMIS4 XX; CHLO4TAB27 PO; FENO48TA2 PO; INSUDET SC
--- NOTE | 2018-09-16 11:09 | REP ---
Clinical: Essential hypertension . Comparison: None . Technique: PA and lateral. Findings: The mediastinum and cardiac silhouette are normal. The lung raygoza are clear and without acute consolidation, effusion, or pneumothorax. The skeletal structures are intact and normal. Impression: 1. No acute cardiopulmonary process. Electronically Signed by Neeraj Richter MD 09/16/2018 11:00 A
[2018-09-16 11:16] LABS: HEMOGLOBIN A1c 12.1 %
[2018-09-16 12:33] LABS: MEAN CORPUSCULAR HEMOGLOBIN 31.9 pg (27.0-33.0); MEAN CORPUSCULAR HGB CONC 34.9 g/dl (32.0-36.5); MEAN CORPUSCULAR VOLUME 91.5 fl (80.0-96.0); PLATELET COUNT, AUTOMATED 204 10^3/uL (150-450)
[2018-09-16 12:45] LABS: WHITE BLOOD COUNT 6.9 10^3/uL (4.0-10.0)
[2018-09-16 12:49] LABS: ALBUMIN 3.5 GM/DL (3.2-5.2); BILIRUBIN,TOTAL 0.7 MG/DL (0.2-1.0); BLOOD UREA NITROGEN 16 MG/DL (7-18); CARBON DIOXIDE LEVEL 24 MEQ/L (21-32); CHLORIDE LEVEL 100 MEQ/L (98-107); CHOLESTEROL LEVEL 229 MG/DL (<200); CHOLESTEROL RISK RATIO 19.083 (<5); CREATININE FOR GFR 1.15 MG/DL (0.70-1.30); GLOMERULAR FILTRATION RATE > 60.0 (>56); GLUCOSE, FASTING 426 MG/DL (70-100); HDL CHOLESTEROL 12 MG/DL (>40); NON-HDL-C 217 MG/DL; POTASSIUM SERUM 4.5 MEQ/L (3.5-5.1); PROSTATIC SPECIFIC AG MONITOR 0.49 NG/ML (< 4.00); SODIUM LEVEL 135 MEQ/L (136-145); TESTOSTERONE 192 NG/DL (241-827); TOTAL 25(OH) VITAMIN D 6.9 NG/ML (30.0-100.0); TOTAL PROTEIN 6.9 GM/DL (6.4-8.2)
--- NOTE | 2018-09-16 14:13 | ECGEPIP ---
Stationary ECG Study [facility] Test Date: 2018-09-16 Pat Name: MICHAELA MORALES Department: Room: - Gender: M Genetics Physician: Denzel : [id number] Requested By: Edy Ladd Order Number: [id number] Reading MD: Samanta Hopson Measurements Intervals [place] Rate: 83 P: 13 [place]: 145 QRS: -13 QRSD: 77 T: 18 QT: 350 QTc: 413 Interpretive Statements SINUS RHYTHM INFERIOR MYOCARDIAL INFARCTION, PROBABLY OLD RATE SLOWER C/W 01/22/17 Electronically Signed On 09-16-2018 14:13:41 EST by Samanta Hopson
[2018-09-16 14:43] LABS: ALT/SGPT 36 U/L (12-78); THYROXINE (T4) 8.2 UG/DL (4.5-12.0); TRIGLYCERIDES LEVEL 1582 MG/DL (<150)
== END ==
LOC: M LAB 10:15
PROVIDERS: ATTEND Family Medicine
DX: I10 Essential (primary) hypertension (principal); E11.9 Type 2 diabetes mellitus without complications; E03.9 Hypothyroidism, unspecified

== ENCOUNTER → 2018-12-14 | Outpatient (CLI) | payer BC ==
[2018-12-14 15:55] LABS: HEMATOCRIT 47.3 % (42.0-52.0); HEMOGLOBIN 16.7 g/dl (13.5-17.5); MEAN CORPUSCULAR HEMOGLOBIN 31.1 pg (27.0-33.0); MEAN CORPUSCULAR HGB CONC 35.3 g/dl (32.0-36.5); MEAN CORPUSCULAR VOLUME 88.1 fl (80.0-96.0); PLATELET COUNT, AUTOMATED 185 10^3/uL (150-450); RED BLOOD COUNT 5.37 10^6/uL (4.30-6.10); WHITE BLOOD COUNT 7.5 10^3/uL (4.0-10.0)
[2018-12-14 16:18] LABS: HEMOGLOBIN A1c 9.9 %
[2018-12-14 16:32] LABS: ALT/SGPT 38 U/L (12-78); BILIRUBIN,TOTAL 0.7 MG/DL (0.2-1.0); BLOOD UREA NITROGEN 17 MG/DL (7-18); CALCIUM LEVEL 8.9 MG/DL (8.5-10.1); CARBON DIOXIDE LEVEL 24 MEQ/L (21-32); CHLORIDE LEVEL 103 MEQ/L (98-107); CHOLESTEROL LEVEL 234 MG/DL (<200); CREATININE FOR GFR 0.93 MG/DL (0.70-1.30); GLOMERULAR FILTRATION RATE > 60.0 (>56); GLUCOSE, FASTING 155 MG/DL (70-100); HDL CHOLESTEROL 25 MG/DL (>40); NON-HDL-C 209 MG/DL; POTASSIUM SERUM 4.1 MEQ/L (3.5-5.1); SODIUM LEVEL 137 MEQ/L (136-145); TESTOSTERONE 204 NG/DL (241-827); TOTAL PROTEIN 7.2 GM/DL (6.4-8.2); TRIGLYCERIDES LEVEL 1087 MG/DL (<150)
== END ==
LOC: M LAB 15:28
PROVIDERS: ATTEND Family Medicine
DX: I10 Essential (primary) hypertension (principal); E11.9 Type 2 diabetes mellitus without complications; E03.9 Hypothyroidism, unspecified

== ENCOUNTER → 2019-07-26 | Outpatient (CLI) | payer BC ==
[~2019-07-26] MED LIST changes: +ALLE4TAB12 PO; -CHLO4TAB27 PO; +FENO48TA13 PO; -FENO48TA2 PO
[2019-07-26 10:51] LABS: HEMATOCRIT 47.2 % (42.0-52.0); HEMOGLOBIN 16.8 g/dl (13.5-17.5); MEAN CORPUSCULAR HEMOGLOBIN 32.4 pg (27.0-33.0); MEAN CORPUSCULAR HGB CONC 35.6 g/dl (32.0-36.5); MEAN CORPUSCULAR VOLUME 91.1 fl (80.0-96.0); PLATELET COUNT, AUTOMATED 216 10^3/uL (150-450); RED BLOOD COUNT 5.18 10^6/uL (4.30-6.10); WHITE BLOOD COUNT 6.5 10^3/uL (4.0-10.0)
[2019-07-26 11:09] LABS: HEMOGLOBIN A1c 8.7 %
[2019-07-26 13:01] LABS: ALBUMIN 3.6 GM/DL (3.2-5.2); ALT/SGPT 42 U/L (12-78); BILIRUBIN,TOTAL 0.8 MG/DL (0.2-1.0); BLOOD UREA NITROGEN 18 MG/DL (7-18); CALCIUM LEVEL 7.9 MG/DL (8.5-10.1); CARBON DIOXIDE LEVEL 25 MEQ/L (21-32); CHLORIDE LEVEL 104 MEQ/L (98-107); CHOLESTEROL LEVEL 264 MG/DL (<200); CHOLESTEROL RISK RATIO 14.666 (<5); CREATININE FOR GFR 1.03 MG/DL (0.70-1.30); GLOMERULAR FILTRATION RATE > 60.0 (>56); GLUCOSE, FASTING 188 MG/DL (70-100); HDL CHOLESTEROL 18 MG/DL (>40); NON-HDL-C 246 MG/DL; POTASSIUM SERUM 4.4 MEQ/L (3.5-5.1); PROSTATIC SPECIFIC AG MONITOR 0.73 NG/ML (< 4.00); SODIUM LEVEL 138 MEQ/L (136-145); TOTAL PROTEIN 6.8 GM/DL (6.4-8.2); TRIGLYCERIDES LEVEL 2264 MG/DL (<150)
[2019-07-26 19:18] LABS: TESTOSTERONE 111 NG/DL (241-827); TOTAL 25(OH) VITAMIN D 7.8 NG/ML (30.0-100.0)
== END ==
LOC: M LAB 10:11
PROVIDERS: ATTEND Family Medicine
DX: I10 Essential (primary) hypertension (principal)

== ENCOUNTER → 2020-04-01 | Outpatient (CLI) | payer BC ==
[~2020-04-01] MED LIST changes: -FENO48TA13 PO; +FENO48TA7 PO
[2020-04-01 12:06] LABS: HEMATOCRIT 48.6 % (42.0-52.0); HEMOGLOBIN 17.3 g/dl (13.5-17.5); MEAN CORPUSCULAR HEMOGLOBIN 33.1 pg (27.0-33.0); MEAN CORPUSCULAR HGB CONC 35.6 g/dl (32.0-36.5); MEAN CORPUSCULAR VOLUME 92.9 fl (80.0-96.0); PLATELET COUNT, AUTOMATED 197 10^3/uL (150-450); RED BLOOD COUNT 5.23 10^6/uL (4.30-6.10); WHITE BLOOD COUNT 6.5 10^3/uL (4.0-10.0)
[2020-04-01 12:24] LABS: HEMOGLOBIN A1c 8.5 %
[2020-04-01 12:46] LABS: ALBUMIN 3.9 GM/DL (3.2-5.2); BILIRUBIN,TOTAL 0.6 MG/DL (0.2-1.0); BLOOD UREA NITROGEN 19 MG/DL (7-18); CALCIUM LEVEL 8.3 MG/DL (8.5-10.1); CARBON DIOXIDE LEVEL 22 MEQ/L (21-32); CHLORIDE LEVEL 106 MEQ/L (98-107); CHOLESTEROL LEVEL 252 MG/DL (<200); CHOLESTEROL RISK RATIO 13.263 (<5); CREATININE FOR GFR 1.04 MG/DL (0.70-1.30); GLOMERULAR FILTRATION RATE > 60.0 (>56); GLUCOSE, FASTING 234 MG/DL (70-100); HDL CHOLESTEROL 19 MG/DL (>40); NON-HDL-C 233 MG/DL; POTASSIUM SERUM 4.1 MEQ/L (3.5-5.1); PROSTATIC SPECIFIC AG MONITOR 0.78 NG/ML (< 4.00); SODIUM LEVEL 136 MEQ/L (136-145)
[2020-04-01 13:09] LABS: TOTAL PROTEIN 7.3 GM/DL (6.4-8.2)
[2020-04-01 13:10] LABS: TRIGLYCERIDES LEVEL 1935 MG/DL (<150)
[2020-04-01 13:24] LABS: ALT/SGPT 37 IU/L (0-32)
[2020-04-03 15:15] LABS: TESTOSTERONE 193 NG/DL (241-827)
== END ==
LOC: M LAB 11:22
PROVIDERS: ATTEND Family Medicine
DX: I10 Essential (primary) hypertension (principal); E11.9 Type 2 diabetes mellitus without complications; R53.83 Other fatigue

== ENCOUNTER → 2020-11-03 | Outpatient (CLI) | payer BC ==
[2020-11-03 09:41] LABS: HEMATOCRIT 57.5 % (42.0-52.0); HEMOGLOBIN 19.6 g/dl (13.5-17.5); MEAN CORPUSCULAR HEMOGLOBIN 31.2 pg (27.0-33.0); MEAN CORPUSCULAR HGB CONC 34.1 g/dl (32.0-36.5); MEAN CORPUSCULAR VOLUME 91.6 fl (80.0-96.0); PLATELET COUNT, AUTOMATED 195 10^3/uL (150-450); RED BLOOD COUNT 6.28 10^6/uL (4.30-6.10)
[2020-11-03 10:25] LABS: ALBUMIN 4.2 GM/DL (3.2-5.2); ALT/SGPT 40 U/L (12-78); BILIRUBIN,TOTAL 0.9 MG/DL (0.2-1.0); BLOOD UREA NITROGEN 17 MG/DL (7-18); CALCIUM LEVEL 9.2 MG/DL (8.5-10.1); CARBON DIOXIDE LEVEL 26 MEQ/L (21-32); CHLORIDE LEVEL 100 MEQ/L (98-107); CHOLESTEROL LEVEL 234 MG/DL (<200); CREATININE FOR GFR 1.11 MG/DL (0.70-1.30); GLOMERULAR FILTRATION RATE > 60.0 (>56); GLUCOSE, FASTING 174 MG/DL (70-100); HDL CHOLESTEROL 26 MG/DL (>40); NON-HDL-C 208 MG/DL; POTASSIUM SERUM 4.1 MEQ/L (3.5-5.1); SODIUM LEVEL 138 MEQ/L (136-145); TESTOSTERONE 647 NG/DL (241-827); TOTAL PROTEIN 7.4 GM/DL (6.4-8.2); TRIGLYCERIDES LEVEL 901 MG/DL (<150)
[2020-11-03 10:27] LABS: HEMOGLOBIN A1c 9.8 %
== END ==
LOC: M LAB 09:03
PROVIDERS: ATTEND Family Medicine
DX: R53.83 Other fatigue (principal); I10 Essential (primary) hypertension; E11.9 Type 2 diabetes mellitus without complications

== ENCOUNTER → 2021-02-23 | Outpatient (CLI) | payer BC ==
[2021-02-23 14:02] LABS: HEMATOCRIT 49.6 % (42.0-52.0); HEMOGLOBIN 19.8 g/dl (13.5-17.5); MEAN CORPUSCULAR HEMOGLOBIN 37.1 pg (27.0-33.0); MEAN CORPUSCULAR VOLUME 92.9 fl (80.0-96.0); PLATELET COUNT, AUTOMATED 183 10^3/uL (150-450); RED BLOOD COUNT 5.34 10^6/uL (4.30-6.10)
[2021-02-23 14:04] LABS: MEAN CORPUSCULAR HGB CONC 39.9 g/dl (32.0-36.5)
[2021-02-23 14:34] LABS: HEMOGLOBIN A1c 10.5 %
[2021-02-23 15:20] LABS: ALT/SGPT 42 U/L (12-78); BILIRUBIN,TOTAL 0.8 MG/DL (0.2-1.0); BLOOD UREA NITROGEN 16 MG/DL (7-18); CALCIUM LEVEL 9.7 MG/DL (8.5-10.1); CARBON DIOXIDE LEVEL 20 MEQ/L (21-32); CHLORIDE LEVEL 94 MEQ/L (98-107); CHOLESTEROL LEVEL 258 MG/DL (<200); CREATININE FOR GFR 1.34 MG/DL (0.70-1.30); GLOMERULAR FILTRATION RATE 59.6 (>56); GLUCOSE, FASTING 202 MG/DL (70-100); HDL CHOLESTEROL 15 MG/DL (>40); NON-HDL-C 243 MG/DL; POTASSIUM SERUM 4.2 MEQ/L (3.5-5.1); PROSTATIC SPECIFIC AG MONITOR 0.58 NG/ML (< 4.00); SODIUM LEVEL 128 MEQ/L (136-145); TESTOSTERONE 97 NG/DL (241-827); TOTAL PROTEIN 7.4 GM/DL (6.4-8.2); TRIGLYCERIDES LEVEL 1946 MG/DL (<150)
== END ==
LOC: M LAB 12:14
PROVIDERS: ATTEND Family Medicine
DX: I10 Essential (primary) hypertension (principal); E11.9 Type 2 diabetes mellitus without complications; R53.83 Other fatigue; E03.9 Hypothyroidism, unspecified

== ENCOUNTER → 2021-07-06 | Outpatient (CLI) | payer BC ==
[2021-07-06 14:19] LABS: MEAN CORPUSCULAR HEMOGLOBIN 31.8 pg (27.0-33.0); MEAN CORPUSCULAR HGB CONC 34.4 g/dl (32.0-36.5); MEAN CORPUSCULAR VOLUME 92.7 fl (80.0-96.0); PLATELET COUNT, AUTOMATED 186 10^3/uL (150-450); RED BLOOD COUNT 6.69 10^6/uL (4.30-6.10); WHITE BLOOD COUNT 7.1 10^3/uL (4.0-10.0)
[2021-07-06 14:27] LABS: HEMOGLOBIN 21.3 g/dl (13.5-17.5)
[2021-07-06 14:56] LABS: ALBUMIN 4.1 GM/DL (3.2-5.2); ALT/SGPT 35 U/L (12-78); BILIRUBIN,TOTAL 0.9 MG/DL (0.2-1.0); BLOOD UREA NITROGEN 20 MG/DL (7-18); CALCIUM LEVEL 9.8 MG/DL (8.5-10.1); CARBON DIOXIDE LEVEL 29 MEQ/L (21-32); CHLORIDE LEVEL 104 MEQ/L (98-107); CHOLESTEROL LEVEL 174 MG/DL (<200); CHOLESTEROL RISK RATIO 6.692 (<5); GLOMERULAR FILTRATION RATE > 60.0 (>56); GLUCOSE, FASTING 135 MG/DL (70-100); HDL CHOLESTEROL 26 MG/DL (>40); NON-HDL-C 148 MG/DL; POTASSIUM SERUM 4.8 MEQ/L (3.5-5.1); SODIUM LEVEL 140 MEQ/L (136-145); TESTOSTERONE 385 NG/DL (241-827); TOTAL PROTEIN 7.7 GM/DL (6.4-8.2); TRIGLYCERIDES LEVEL 415 MG/DL (<150)
[2021-07-06 15:19] LABS: HEMOGLOBIN A1c 8.2 %
== END ==
LOC: M LAB 13:08
PROVIDERS: ATTEND Family Medicine
DX: E03.9 Hypothyroidism, unspecified (principal); I10 Essential (primary) hypertension; E11.9 Type 2 diabetes mellitus without complications; R53.83 Other fatigue
CPT/HCPCS: 36415; 80053; 80061; 83036; 84403; 84443; 85027; G0103

== ENCOUNTER → 2021-12-07 | Outpatient (CLI) | payer BC ==
[~2021-12-07] MED LIST changes: -FENO48TA7 PO; +FENO48TA8 PO
[2021-12-07 17:46] LABS: HEMATOCRIT 51.7 % (42.0-52.0); HEMOGLOBIN 18.1 g/dl (13.5-17.5); MEAN CORPUSCULAR HEMOGLOBIN 32.3 pg (27.0-33.0); MEAN CORPUSCULAR VOLUME 92.3 fl (80.0-96.0); PLATELET COUNT, AUTOMATED 195 10^3/uL (150-450); WHITE BLOOD COUNT 7.6 10^3/uL (4.0-10.0)
[2021-12-07 18:03] LABS: HEMOGLOBIN A1c 8.9 %
[2021-12-07 18:25] LABS: ALBUMIN 4.4 GM/DL (3.2-5.2); ALT/SGPT 59 U/L (12-78); BILIRUBIN,TOTAL 0.7 MG/DL (0.2-1.0); BLOOD UREA NITROGEN 23 MG/DL (7-18); CALCIUM LEVEL 9.8 MG/DL (8.5-10.1); CARBON DIOXIDE LEVEL 30 MEQ/L (21-32); CHLORIDE LEVEL 105 MEQ/L (98-107); CHOLESTEROL LEVEL 231 MG/DL (<200); CHOLESTEROL RISK RATIO 8.555 (<5); CREATININE FOR GFR 1.05 MG/DL (0.70-1.30); GLOMERULAR FILTRATION RATE > 60.0 (>56); GLUCOSE, FASTING 151 MG/DL (70-100); HDL CHOLESTEROL 27 MG/DL (>40); NON-HDL-C 204 MG/DL; POTASSIUM SERUM 4.3 MEQ/L (3.5-5.1); PROSTATIC SPECIFIC AG MONITOR 1.02 NG/ML (< 4.00); SODIUM LEVEL 139 MEQ/L (136-145); TOTAL PROTEIN 7.2 GM/DL (6.4-8.2); TRIGLYCERIDES LEVEL 775 MG/DL (<150)
[2021-12-07 18:27] LABS: TESTOSTERONE 101 NG/DL (241-827)
== END ==
LOC: M LAB 16:32
PROVIDERS: ATTEND Family Medicine
DX: R53.83 Other fatigue (principal); I10 Essential (primary) hypertension; E11.9 Type 2 diabetes mellitus without complications

== ENCOUNTER → 2022-04-15 | Outpatient (CLI) | payer BC ==
[2022-04-15 12:27] LABS: HEMATOCRIT 50.4 % (42.0-52.0); HEMOGLOBIN 17.7 g/dl (13.5-17.5); MEAN CORPUSCULAR HGB CONC 35.1 g/dl (32.0-36.5); MEAN CORPUSCULAR VOLUME 91.1 fl (80.0-96.0); PLATELET COUNT, AUTOMATED 183 10^3/uL (150-450); RED BLOOD COUNT 5.53 10^6/uL (4.30-6.10); WHITE BLOOD COUNT 6.2 10^3/uL (4.0-10.0)
[2022-04-15 15:09] LABS: ALT/SGPT 34 U/L (12-78); BILIRUBIN,TOTAL 0.9 MG/DL (0.2-1.0); BLOOD UREA NITROGEN 14 MG/DL (7-18); CALCIUM LEVEL 9.8 MG/DL (8.5-10.1); CARBON DIOXIDE LEVEL 24 MEQ/L (21-32); CHLORIDE LEVEL 107 MEQ/L (98-107); CHOLESTEROL LEVEL 222 MG/DL (<200); CREATININE FOR GFR 1.06 MG/DL (0.70-1.30); GLOMERULAR FILTRATION RATE > 60.0 (>56); GLUCOSE, FASTING 176 MG/DL (70-100); HDL CHOLESTEROL 25 MG/DL (>40); NON-HDL-C 197 MG/DL; POTASSIUM SERUM 4.1 MEQ/L (3.5-5.1); SODIUM LEVEL 139 MEQ/L (136-145); TESTOSTERONE 489 NG/DL (241-827); TOTAL PROTEIN 7.1 GM/DL (6.4-8.2); TRIGLYCERIDES LEVEL 955 MG/DL (<150)
[2022-04-16 00:28] LABS: HEMOGLOBIN A1c 8.8 %
== END ==
LOC: M LAB 11:18
PROVIDERS: ATTEND Family Medicine
DX: I10 Essential (primary) hypertension (principal); R53.83 Other fatigue; E11.9 Type 2 diabetes mellitus without complications
CPT/HCPCS: 36415; 80053; 80061; 83036; 84403; 84443; 85027; G0103

== ENCOUNTER → 2022-10-24 | Outpatient (CLI) | payer BC ==
[2022-10-24 12:23] LABS: HEMATOCRIT 51.4 % (42.0-52.0); HEMOGLOBIN 17.5 g/dl (13.5-17.5); MEAN CORPUSCULAR VOLUME 91.1 fl (80.0-96.0); PLATELET COUNT, AUTOMATED 204 10^3/uL (150-450); RED BLOOD COUNT 5.64 10^6/uL (4.30-6.10); WHITE BLOOD COUNT 5.9 10^3/uL (4.0-10.0)
[2022-10-24 12:57] LABS: ALKALINE PHOSPHATASE 53 U/L (46-116); ALT/SGPT 43 U/L (7.0-40); AST/SGOT 23 U/L (<34); BILIRUBIN,TOTAL 0.8 MG/DL (0.3-1.2); BLOOD UREA NITROGEN 18 MG/DL (9-23); CALCIUM LEVEL 9.4 MG/DL (8.5-10.1); CARBON DIOXIDE LEVEL 23 MMOL/L (20-31); CHLORIDE LEVEL 106 MMOL/L (98-107); CHOLESTEROL LEVEL 151 MG/DL (<200); CHOLESTEROL RISK RATIO 5.49 (<5); CREATININE FOR GFR 1.11 MG/DL (0.70-1.30); GLOMERULAR FILTRATION RATE > 60.0 (>56); GLUCOSE, FASTING 145 MG/DL (60-100); HDL CHOLESTEROL 27.5 MG/DL (>40); LDL CHOLESTEROL 67.5 MG/DL (<100); NON-HDL-C 124 MG/DL; POTASSIUM SERUM 3.9 MMOL/L (3.5-5.1); SODIUM LEVEL 138 MMOL/L (136-145); TOTAL PROTEIN 6.9 G/DL (5.7-8.2); TRIGLYCERIDES LEVEL 280 MG/DL (<150)
[2022-10-24 14:09] LABS: PROSTATIC SPECIFIC AG MONITOR 0.77 NG/ML (< 4.00); TESTOSTERONE 343 NG/DL (241-827); THYROID STIMULATING HORMONE 1.596 uIU/ML (0.55-4.78); TOTAL 25(OH) VITAMIN D 24.8 NG/ML (20.0-100.0)
[2022-10-24 15:03] LABS: HEMOGLOBIN A1c 9.4 % (4.0-6.0)
== END ==
LOC: M LAB 11:51
PROVIDERS: ATTEND Family Medicine
DX: R53.83 Other fatigue (principal); I10 Essential (primary) hypertension; D64.9 Anemia, unspecified

== ENCOUNTER → 2023-03-12 | Outpatient (REF) | payer BC ==
[2023-03-12 23:20] LABS: CREATININE, URINE 58.6 MG/DL
[2023-03-12 23:21] LABS: MALB URINE SIEMENS < 3.0 MG/L; MAU/CREAT RATIO 5.1 MCG/MG (0.0-30.0)
== END ==
LOC: M LAB REF 22:40
PROVIDERS: ATTEND Nurse Practitioner Family
DX: E11.65 Type 2 diabetes mellitus with hyperglycemia (principal)

== ENCOUNTER → 2023-05-12 | Outpatient (CLI) | payer BC ==
[2023-05-12 09:25] LABS: HEMATOCRIT 53.6 % (42.0-52.0); HEMOGLOBIN 18.2 g/dl (13.5-17.5); MEAN CORPUSCULAR VOLUME 91.2 fl (80.0-96.0); PLATELET COUNT, AUTOMATED 181 10^3/uL (150-450); RED BLOOD COUNT 5.88 10^6/uL (4.30-6.10)
[2023-05-12 10:06] LABS: HEMOGLOBIN A1c 7.4 % (4.0-6.0)
[2023-05-12 10:42] LABS: ALBUMIN 3.8 G/DL (3.2-5.2); ALKALINE PHOSPHATASE 69 U/L (46-116); ALT/SGPT 29 U/L (7.0-40); AST/SGOT 13 U/L (<34); BILIRUBIN,TOTAL 0.7 MG/DL (0.3-1.2); BLOOD UREA NITROGEN 16 MG/DL (9-23); CARBON DIOXIDE LEVEL 27 MMOL/L (20-31); CHLORIDE LEVEL 104 MMOL/L (98-107); CHOLESTEROL LEVEL 167 MG/DL (<200); CREATININE FOR GFR 1.02 MG/DL (0.70-1.30); GLOMERULAR FILTRATION RATE > 60.0 (>56); GLUCOSE, FASTING 172 MG/DL (60-100); HDL CHOLESTEROL 32.1 MG/DL (>40); LDL CHOLESTEROL 58.7 MG/DL (<100); NON-HDL-C 134.9 MG/DL; POTASSIUM SERUM 3.8 MMOL/L (3.5-5.1); PROSTATIC SPECIFIC AG MONITOR 0.96 NG/ML (< 4.00); SODIUM LEVEL 137 MMOL/L (136-145); TESTOSTERONE 143 NG/DL (241-827); THYROID STIMULATING HORMONE 4.702 uIU/ML (0.55-4.78); TOTAL 25(OH) VITAMIN D 22.2 NG/ML (20.0-100.0); TOTAL PROTEIN 6.8 G/DL (5.7-8.2); TRIGLYCERIDES LEVEL 381 MG/DL (<150)
== END ==
LOC: M LAB 08:47
PROVIDERS: ATTEND Family Medicine
DX: I10 Essential (primary) hypertension (principal); R53.83 Other fatigue; E03.9 Hypothyroidism, unspecified; E11.9 Type 2 diabetes mellitus without complications

== ENCOUNTER → 2023-10-14 | Outpatient (CLI) | payer BC ==
[2023-10-14 07:46] LABS: HEMATOCRIT 57.7 % (42.0-52.0); HEMOGLOBIN 19.7 g/dl (13.5-17.5); MEAN CORPUSCULAR HEMOGLOBIN 31.9 pg (27.0-33.0); MEAN CORPUSCULAR HGB CONC 34.1 g/dl (32.0-36.5); MEAN CORPUSCULAR VOLUME 93.5 fl (80.0-96.0); PLATELET COUNT, AUTOMATED 168 10^3/uL (150-450); RED BLOOD COUNT 6.17 10^6/uL (4.30-6.10); WHITE BLOOD COUNT 6.1 10^3/uL (4.0-10.0)
[2023-10-14 08:15] LABS: PROSTATIC SPECIFIC AG MONITOR 0.99 NG/ML (< 4.00)
[2023-10-14 08:18] LABS: ALBUMIN 3.9 G/DL (3.2-5.2); ALKALINE PHOSPHATASE 66 U/L (46-116); ALT/SGPT 49 U/L (7.0-40); AST/SGOT 28 U/L (<34); BILIRUBIN,TOTAL 1.2 MG/DL (0.3-1.2); BLOOD UREA NITROGEN 19 MG/DL (9-23); CALCIUM LEVEL 9.1 MG/DL (8.5-10.1); CARBON DIOXIDE LEVEL 26 MMOL/L (20-31); CHLORIDE LEVEL 105 MMOL/L (98-107); CHOLESTEROL LEVEL 181 MG/DL (<200); CHOLESTEROL RISK RATIO 5.78 (<5); CREATININE FOR GFR 1.04 MG/DL (0.70-1.30); GLOMERULAR FILTRATION RATE > 60.0 (>56); GLUCOSE, FASTING 110 MG/DL (60-100); HDL CHOLESTEROL 31.3 MG/DL (>40); NON-HDL-C 149.7 MG/DL; POTASSIUM SERUM 4.3 MMOL/L (3.5-5.1); SODIUM LEVEL 140 MMOL/L (136-145); TOTAL PROTEIN 6.6 G/DL (5.7-8.2); TRIGLYCERIDES LEVEL 441 MG/DL (<150)
[2023-10-14 08:19] LABS: THYROID STIMULATING HORMONE 2.972 uIU/ML (0.55-4.78)
[2023-10-14 08:20] LABS: TESTOSTERONE 63 NG/DL (241-827); TOTAL 25(OH) VITAMIN D 30.6 NG/ML (20.0-100.0)
[2023-10-14 08:30] LABS: HEMOGLOBIN A1c 8.1 % (4.0-6.0)
== END ==
LOC: M LAB 07:01
PROVIDERS: ATTEND Family Medicine
DX: I10 Essential (primary) hypertension (principal); D64.9 Anemia, unspecified; E03.9 Hypothyroidism, unspecified; R53.83 Other fatigue

== ENCOUNTER 2023-11-03 08:15 | Day surgery (SDC) | payer BC ==
[~2023-11-03] VITALS: Ht 172.7 cm; Wt 100.2 kg
[~2023-11-03 08:15] MED LIST changes: +FARX1TAB3 PO; +FENO145T7 PO; +LISI10TA22 PO; +TEST200I14 IM; +TRUL0.5I SC
[2023-11-03] MEDS: NS 1,000 ML IV ONE (08:30)
[2023-11-03] MEDS ORDERED: LIDOCAINE 2% 100MG/5ML SDV (FOR ANES.) As Ordered ONE (09:36)
[2023-11-03] MEDS ORDERED: propofoL 200 MG/20 ML VIAL As Ordered ONE (09:36)
[2023-11-03 10:03] VITALS: TEMP 97
[2023-11-03 10:21] VITALS: BP 103/62; O2SAT 95
== END 2023-11-03 10:42 | disposition home or self-care (01) ==
LOC: M OPP 08:15
PROVIDERS: ATTEND Internal Medicine Gastroenterology
DX: Z12.11 Encounter for screening for malignant neoplasm of colon (principal); K63.5 Polyp of colon; K64.0 First degree hemorrhoids; E11.9 Type 2 diabetes mellitus without complications; Z79.84 Long term (current) use of oral hypoglycemic drugs; Z79.899 Other long term (current) drug therapy

== ENCOUNTER → 2024-03-01 | Outpatient (CLI) | payer BC ==
[2024-03-01 07:58] LABS: HEMATOCRIT 56.8 % (42.0-52.0); MEAN CORPUSCULAR HEMOGLOBIN 33.3 pg (27.0-33.0); MEAN CORPUSCULAR HGB CONC 35.9 g/dl (32.0-36.5); MEAN CORPUSCULAR VOLUME 92.8 fl (80.0-96.0); PLATELET COUNT, AUTOMATED 148 10^3/uL (150-450); RED BLOOD COUNT 6.12 10^6/uL (4.30-6.10); WHITE BLOOD COUNT 7.2 10^3/uL (4.0-10.0)
[2024-03-01 08:04] LABS: HEMOGLOBIN A1c 8.9 % (4.0-6.0); PROSTATIC SPECIFIC AG MONITOR 1.12 NG/ML (< 4.00)
[2024-03-01 08:07] LABS: ALKALINE PHOSPHATASE 72 U/L (46-116); ALT/SGPT 70 U/L (7.0-40); AST/SGOT 26 U/L (<34); BILIRUBIN,TOTAL 1.6 MG/DL (0.3-1.2); BLOOD UREA NITROGEN 18 MG/DL (9-23); CALCIUM LEVEL 9.6 MG/DL (8.5-10.1); CARBON DIOXIDE LEVEL 27 MMOL/L (20-31); CHLORIDE LEVEL 104 MMOL/L (98-107); CHOLESTEROL LEVEL 227 MG/DL (<200); CHOLESTEROL RISK RATIO 5.86 (<5); CREATININE FOR GFR 0.95 MG/DL (0.70-1.30); GLOMERULAR FILTRATION RATE > 60.0 (>56); GLUCOSE, FASTING 164 MG/DL (60-100); HDL CHOLESTEROL 38.7 MG/DL (>40); NON-HDL-C 188.3 MG/DL; POTASSIUM SERUM 4.5 MMOL/L (3.5-5.1); SODIUM LEVEL 138 MMOL/L (136-145); TOTAL PROTEIN 6.9 G/DL (5.7-8.2); TRIGLYCERIDES LEVEL 569 MG/DL (<150)
[2024-03-01 08:08] LABS: THYROID STIMULATING HORMONE 4.482 uIU/ML (0.55-4.78); TOTAL 25(OH) VITAMIN D 28.7 NG/ML (20.0-100.0)
[2024-03-01 08:09] LABS: TESTOSTERONE 94 NG/DL (241-827)
[2024-03-01 09:04] LABS: HEMOGLOBIN 20.4 g/dl (13.5-17.5)
== END ==
LOC: M LAB 06:59
PROVIDERS: ATTEND Family Medicine
DX: I10 Essential (primary) hypertension (principal); R53.83 Other fatigue; E03.9 Hypothyroidism, unspecified

== ENCOUNTER → 2024-07-07 | Outpatient (CLI) | payer BC ==
[2024-07-07 11:40] LABS: HEMATOCRIT 53.4 % (42.0-52.0); HEMOGLOBIN 19.1 g/dl (13.5-17.5); MEAN CORPUSCULAR HEMOGLOBIN 33.7 pg (27.0-33.0); MEAN CORPUSCULAR HGB CONC 35.8 g/dl (32.0-36.5); MEAN CORPUSCULAR VOLUME 94.2 fl (80.0-96.0); PLATELET COUNT, AUTOMATED 190 10^3/uL (150-450); RED BLOOD COUNT 5.67 10^6/uL (4.30-6.10); WHITE BLOOD COUNT 5.6 10^3/uL (4.0-10.0)
[2024-07-07 12:01] LABS: PROSTATIC SPECIFIC AG MONITOR 1.35 NG/ML (< 4.00)
[2024-07-07 12:05] LABS: THYROID STIMULATING HORMONE 2.046 uIU/ML (0.55-4.78)
[2024-07-07 12:07] LABS: TESTOSTERONE 350 NG/DL (241-827)
[2024-07-07 12:09] LABS: ALBUMIN 4.1 G/DL (3.2-5.2); ALKALINE PHOSPHATASE 92 U/L (46-116); ALT/SGPT 74 U/L (7.0-40); AST/SGOT 32 U/L (<34); BLOOD UREA NITROGEN 17 MG/DL (9-23); CALCIUM LEVEL 10.4 MG/DL (8.5-10.1); CARBON DIOXIDE LEVEL 28 MMOL/L (20-31); CHLORIDE LEVEL 100 MMOL/L (98-107); CHOLESTEROL LEVEL 252 MG/DL (<200); CHOLESTEROL RISK RATIO 7.61 (<5); CREATININE FOR GFR 0.98 MG/DL (0.70-1.30); GLOMERULAR FILTRATION RATE > 60.0 (>56); GLUCOSE, FASTING 165 MG/DL (60-100); HDL CHOLESTEROL 33.1 MG/DL (>40); NON-HDL-C 218.9 MG/DL; POTASSIUM SERUM 3.9 MMOL/L (3.5-5.1); SODIUM LEVEL 138 MMOL/L (136-145); TOTAL PROTEIN 7.5 G/DL (5.7-8.2); TRIGLYCERIDES LEVEL 838 MG/DL (<150)
[2024-07-07 12:37] LABS: HEMOGLOBIN A1c 8.6 % (4.0-6.0)
== END ==
LOC: M LAB 07-05 07:41
PROVIDERS: ATTEND Family Medicine
DX: I10 Essential (primary) hypertension (principal); E03.9 Hypothyroidism, unspecified; R53.83 Other fatigue

== ENCOUNTER → 2024-11-05 | Outpatient (CLI) | payer BC ==
[2024-11-05 16:10] LABS: MEAN CORPUSCULAR VOLUME 97.7 fl (80.0-96.0); PLATELET COUNT, AUTOMATED 297 10^3/uL (150-450); RED BLOOD COUNT 4.81 10^6/uL (4.30-6.10); WHITE BLOOD COUNT 5.5 10^3/uL (4.0-10.0)
[2024-11-05 16:18] LABS: THYROID STIMULATING HORMONE 3.909 uIU/ML (0.55-4.78)
[2024-11-05 16:36] LABS: HEMOGLOBIN A1c 9.1 % (4.0-6.0)
[2024-11-05 17:12] LABS: ALBUMIN 3.9 G/DL (3.2-5.2); ALKALINE PHOSPHATASE 70 U/L (40-129); ALT/SGPT 53.99999 U/L (7.0-40); AST/SGOT 52 U/L (<34); BILIRUBIN,TOTAL 0.4 MG/DL (0.3-1.2); BLOOD UREA NITROGEN 18 MG/DL (9-23); CALCIUM LEVEL 9.7 MG/DL (8.5-10.1); CARBON DIOXIDE LEVEL 24 MMOL/L (20-31); CHLORIDE LEVEL 99 MMOL/L (98-107); CHOLESTEROL LEVEL 745 MG/DL (<200); CHOLESTEROL RISK RATIO 27.79 (<5); CREATININE FOR GFR 0.79 MG/DL (0.70-1.30); GLOMERULAR FILTRATION RATE > 60.0 (>56); GLUCOSE, FASTING 195 MG/DL (60-100); HDL CHOLESTEROL 26.8 MG/DL (>40); NON-HDL-C 718.2 MG/DL; POTASSIUM SERUM 5.6 MMOL/L (3.5-5.1); PROSTATIC SPECIFIC AG MONITOR 0.95 NG/ML (< 4.00); SODIUM LEVEL 132 MMOL/L (136-145); TOTAL 25(OH) VITAMIN D 7.3 NG/ML (20.0-100.0); TOTAL PROTEIN 6.7 G/DL (5.7-8.2); TRIGLYCERIDES LEVEL 4735 MG/DL (<150)
[2024-11-05 17:29] LABS: TESTOSTERONE 349 NG/DL (241-827)
[2024-11-05 18:26] LABS: HEMOGLOBIN 16.4 g/dl (13.5-17.5)
[2024-11-05 18:27] LABS: MEAN CORPUSCULAR HEMOGLOBIN 34.1 pg (27.0-33.0); MEAN CORPUSCULAR HGB CONC 34.9 g/dl (32.0-36.5)
== END ==
LOC: M LAB 14:56
PROVIDERS: ATTEND Family Medicine
DX: E03.9 Hypothyroidism, unspecified (principal); I10 Essential (primary) hypertension; R53.83 Other fatigue

== ENCOUNTER → 2025-07-08 | Outpatient (CLI) | payer BC ==
[2025-07-08 08:03] LABS: ESTIMATED AVERAGE GLUCOSE 312.0 MG/DL (60-110)
[2025-07-08 08:11] LABS: BASO # 0.0 10^3/uL (0.0-0.2); BASO % 0.8 % (0.0-1.0); EOS # 0.2 10^3/uL (0.0-0.5); EOS % 3.6 % (0.0-3.0); LYMPH # 1.9 10^3/uL (1.5-5.0); LYMPH % 36.6 % (24.0-44.0); MONO # 0.4 10^3/uL (0.0-0.8); MONO % 8.1 % (2.0-8.0); NEUTROPHILS # 2.6 10^3/uL (1.5-8.5); NEUTROPHILS % 50.5 % (36.0-66.0); PLATELET COUNT, AUTOMATED 212 10^3/uL (150-450)
[2025-07-08 08:18] LABS: CREATININE, URINE 31.4 MG/DL; MALB URINE SIEMENS < 3.0 MG/L
[2025-07-08 08:52] LABS: HIV 1&2 SCREEN NEGATIVE (NEGATIVE)
[2025-07-08 09:24] LABS: ALT/SGPT 35 U/L (7.0-40); AST/SGOT 27 U/L (<34); CALCIUM LEVEL 9.5 MG/DL (8.5-10.1); CARBON DIOXIDE LEVEL 26 MMOL/L (20-31); CHLORIDE LEVEL 94 MMOL/L (98-107); CREATININE FOR GFR 0.94 MG/DL (0.70-1.30); FREE T4 1.02 NG/DL (0.89-1.76); GLOMERULAR FILTRATION RATE > 90.0 (>56); POTASSIUM SERUM 5.0 MMOL/L (3.5-5.1); SODIUM LEVEL 132 MMOL/L (136-145)
[2025-07-08 11:19] LABS: PLATELET ESTIMATE NORMAL (NORMAL)
== END ==
LOC: M LAB 06:45
PROVIDERS: ATTEND Family Medicine
DX: Z00.00 Encounter for general adult medical examination without abnormal findings (principal); E11.65 Type 2 diabetes mellitus with hyperglycemia; E03.9 Hypothyroidism, unspecified; Z11.4 Encounter for screening for human immunodeficiency virus [HIV]; Z11.59 Encounter for screening for other viral diseases
CPT/HCPCS: 36415; 80053; 82043; 83036; 84439; 84443; 85025; 87389; G0472